=== PATIENT | female | born 1940 | race Caucasian/White ===

== ENCOUNTER → 2017-04-23 | Outpatient (CLI) | payer MEDICARE ==
[~2017-04-23] MED LIST: CALCIUM 600/VIT1 CA1 PO; HCTZ 25MG TAB25 MG PO; MULTI VITAMINS1 TAB PO; NORCO 325 MG-7.1 TAB PO; ROXICODONE 55 MG/TAB PO; ZESTRIL40 MG PO
== END ==
LOC: COL.RAD 10:04
DX: M54.5 Low back pain (principal)

== ENCOUNTER → 2020-10-05 | Outpatient (CLI) | payer MEDICARE | LOC: COL.RAD 09-21 12:30 | DX: M48.061 Spinal stenosis, lumbar region without neurogenic claudication (principal); G60.9 Hereditary and idiopathic neuropathy, unspecified; M47.816 Spondylosis without myelopathy or radiculopathy, lumbar region ==

== ENCOUNTER → 2021-01-23 | Outpatient (CLI) | payer MEDICARE | LOC: MHCPAIN 13:00 | DX: M47.817 Spondylosis without myelopathy or radiculopathy, lumbosacral region (principal); M54.16 Radiculopathy, lumbar region; M48.062 Spinal stenosis, lumbar region with neurogenic claudication; G89.29 Other chronic pain | CPT/HCPCS: G0463 ==

== ENCOUNTER → 2021-03-07 | Outpatient (CLI) | payer MEDICARE | LOC: MHCPAIN 12:36 | DX: M47.817 Spondylosis without myelopathy or radiculopathy, lumbosacral region (principal); M54.16 Radiculopathy, lumbar region; M48.062 Spinal stenosis, lumbar region with neurogenic claudication; G89.29 Other chronic pain | CPT/HCPCS: G0463; J1100; Q9967 ==

== ENCOUNTER → 2021-03-26 | Outpatient (CLI) | payer MEDICARE | LOC: MHCPAIN 12:57 | DX: M47.817 Spondylosis without myelopathy or radiculopathy, lumbosacral region (principal); M48.062 Spinal stenosis, lumbar region with neurogenic claudication; M54.16 Radiculopathy, lumbar region; G89.29 Other chronic pain | CPT/HCPCS: G0463 ==

== ENCOUNTER → 2021-04-09 | Outpatient (RCR) | payer MEDICARE | END | disposition home or self-care (01) | LOC: WSC → WSPT 02-05 10:30 → WSC 02-19 13:00 → WSPT 02-28 13:15 → WSC 03-05 11:15 → WSPT 03-14 13:00 → WSC 03-29 13:00 | DX: M43.16 Spondylolisthesis, lumbar region (principal); M51.36 Other intervertebral disc degeneration, lumbar region; M47.819 Spondylosis without myelopathy or radiculopathy, site unspecified; M48.062 Spinal stenosis, lumbar region with neurogenic claudication ==

== ENCOUNTER → 2022-03-17 | Outpatient (CLI) | payer MEDICARE | LOC: COL.RAD 07:09 | DX: M47.26 Other spondylosis with radiculopathy, lumbar region (principal); M48.062 Spinal stenosis, lumbar region with neurogenic claudication; M43.16 Spondylolisthesis, lumbar region; M89.9 Disorder of bone, unspecified ==

== ENCOUNTER → 2022-03-19 | Outpatient (CLI) | payer MEDICARE | LOC: MHCPAIN 10:59 | DX: M47.816 Spondylosis without myelopathy or radiculopathy, lumbar region (principal); M79.2 Neuralgia and neuritis, unspecified; M54.6 Pain in thoracic spine; M48.062 Spinal stenosis, lumbar region with neurogenic claudication | CPT/HCPCS: G0463 ==

== ENCOUNTER → 2022-04-03 | Outpatient (CLI) | payer MEDICARE | LOC: MHCPAIN 10:36 | DX: M47.816 Spondylosis without myelopathy or radiculopathy, lumbar region (principal); M48.062 Spinal stenosis, lumbar region with neurogenic claudication; M54.16 Radiculopathy, lumbar region | CPT/HCPCS: J1100; Q9967 ==

== ENCOUNTER → 2022-04-29 | Outpatient (CLI) | payer MEDICARE | LOC: MHCPAIN 11:02 | DX: M47.816 Spondylosis without myelopathy or radiculopathy, lumbar region (principal); M53.3 Sacrococcygeal disorders, not elsewhere classified; M54.50 Low back pain, unspecified | CPT/HCPCS: G0463 ==

== ENCOUNTER → 2022-05-08 | Outpatient (CLI) | payer MEDICARE | LOC: MHCPAIN 12:26 | DX: M47.817 Spondylosis without myelopathy or radiculopathy, lumbosacral region (principal); M53.3 Sacrococcygeal disorders, not elsewhere classified | CPT/HCPCS: G0260; J1040; Q9967 ==

== ENCOUNTER → 2022-06-10 | Outpatient (CLI) | payer MEDICARE | LOC: MHCPAIN 10:21 | DX: M47.816 Spondylosis without myelopathy or radiculopathy, lumbar region (principal); M53.3 Sacrococcygeal disorders, not elsewhere classified; M54.16 Radiculopathy, lumbar region; M48.062 Spinal stenosis, lumbar region with neurogenic claudication | CPT/HCPCS: G0463 ==

== ENCOUNTER → 2023-02-18 | Outpatient (CLI) | payer MEDICARE | LOC: MHCPAIN 10:23 | DX: M47.896 Other spondylosis, lumbar region (principal); M48.062 Spinal stenosis, lumbar region with neurogenic claudication; M53.3 Sacrococcygeal disorders, not elsewhere classified | CPT/HCPCS: G0463 ==

== ENCOUNTER → 2023-03-17 | Outpatient (CLI) | payer MEDICARE | LOC: MHCPAIN 12:30 | DX: M47.896 Other spondylosis, lumbar region (principal); M54.16 Radiculopathy, lumbar region; M53.3 Sacrococcygeal disorders, not elsewhere classified | CPT/HCPCS: G0463 ==